=== PATIENT | female | born 1990 | race Caucasian/White ===

== ENCOUNTER 2023-09-02 23:48 | Emergency (ER) | payer OTHER ==
[~2023-09-02] VITALS: Ht 142.2 cm; Wt 68.0 kg
[2023-09-02 23:53] VITALS: BP 146/86; PULSE 116; RESP 18; TEMP 98.7; O2SAT 100
== END 2023-09-03 01:13 | disposition home or self-care (01) ==
LOC: ER 23:48
DX: Z00.00 Encounter for general adult medical examination without abnormal findings (principal); Z98.890 Other specified postprocedural states
CPT/HCPCS: 99281